=== PATIENT | female | born 1935 | race Caucasian/White ===

== ENCOUNTER 2016-06-08 13:14 | Inpatient (IN) | payer MEDICARE, BC ==
[~2016-06-08] VITALS: Ht 172.7 cm; Wt 68.1 kg
[2016-06-08] VITALS (8 sets, daily range): BP systolic 119–140; BP diastolic 59–76
[~2016-06-08 13:14] MED LIST: AMLODIPINE10 MG PO; ARICEPT5 MG PO; ASPIRIN EC81 MG PO; BENICAR HCT1 TA2 PO; BENICAR40 MG PO; BENZONATATE200 MG PO; CALCIUM500 M3 PO; CITALOPRAM10 MG PO; COREG25 MG PO; ECOTRIN325 MG; FLONASE NASAL50 MCG; GABAPENTIN100 MG PO; GABAPENTIN300 MG PO; HYDROCHLOROT12.5 M1 PO; IMDUR60 MG PO; LASIX20 MG PO; LISINOPRIL20 M1 OR; MAGNESIUM 250 M1 TAB PO; METOPROL TAR25 M1 PO; NAMENDA XR28 MG PO; NORTRIPTYLIN25 MG PO; OMEPRAZOLE20 M1 PO; PRAVASTATIN40 MG PO; PREDNISONE10 MG PO; RETINAVITES PO; VITAMIN B-121000 MCG PO; VITAMIN D3400 UNI1 PO; XANAX0.25 MG PO
[2016-06-08 13:43] LABS: HEMATOCRIT 42.8 % (37.0-47.0); HEMOGLOBIN 14.2 g/dl (12.0-16.0); IMMATURE GRANULOCYTES 0.9 % (0.0-1.0); MEAN CORPUSCULAR HGB 30.5 pG CALC (26.0-32.0); MEAN CORPUSCULAR HGB CONC 33.2 g/L CALC (32.0-36.0); NEUT# 3.6 thou/uL (2.00-7.15); RED BLOOD COUNT 4.65 mill/uL (4.20-5.60); RED CELL DISTRI WIDTH 13.2 % (11.5-15.5)
[2016-06-08 13:54] LABS: PROTHROMBIN TIME 10.9 SECONDS (9.0-12.5)
[2016-06-08 13:57] LABS: ALBUMIN 4.7 g/dL (3.2-5.0); ALKALINE PHOSPHATASE 95 u/l (38-126); ANION GAP 18 (6-22 (CALC)); BILIRUBIN, TOTAL 0.6 mg/dL (0.0-1.4); BUN 26 mg/dL (8-23); BUN/CREATININE RATIO 23 (12-20 (CALC)); CALCIUM 9.4 mg/dL (8.4-10.2); CARBON DIOXIDE 25 mmol/l (22-30); CHLORIDE 100 mmol/l (95-108); CREATININE 1.1 mg/dL (0.5-1.0); GFR 48 ML/MIN (>=60 (CALC)); GFR FOR AFR.AMER. 58 ML/MIN (>=60 (CALC)); GLUCOSE 84 mg/dL (82-115); POTASSIUM 3.8 mmol/l (3.5-5.1); SGOT/AST 31 u/l (9-36); SGPT/ALT 22 u/l (11-66); SODIUM 140 mmol/l (137-146); TOTAL PROTEIN 8.1 g/dL (6.3-8.2)
[2016-06-08 14:09] LABS: MYOGLOBIN 73 ng/mL (0 - 62)
[2016-06-08 15:24] LABS: URINE BILIRUBIN - DIPSTICK NEGATIVE (NEGATIVE); URINE BLOOD DIPSTICK NEGATIVE (NEGATIVE); URINE CLARITY SLIGHT CLOUDY; URINE COLOR YELLOW; URINE GLUCOSE - DIPSTICK NEGATIVE (NEGATIVE); URINE KETONE NEGATIVE (NEGATIVE); URINE NITRITE - DIPSTICK NEGATIVE (Negative); URINE PH 6.5 (4.5-8.0); URINE PROTEIN - DIPSTICK NEGATIVE (NEG-TRACE); URINE UROBILINOGEN - DIPSTICK 0.2 E.U./dL (0.2)
[2016-06-08 15:27] LABS: URINE LEUK ESTERASE SMALL (NEGATIVE)
[2016-06-08 15:31] LABS: URINE BACTERIA MANY hpf; URINE RBC 0-2 RBC/hpf (0-5); URINE SQUAMOUS EPITHELIAL CELL FEW EPI/hpf (0-FEW)
[2016-06-09] VITALS (17 sets, daily range): BP systolic 124–182; BP diastolic 53–95
[2016-06-09 05:31] LABS: HEMOGLOBIN 13.4 g/dl (12.0-16.0); IMMATURE GRANULOCYTES 0.4 % (0.0-1.0); MEAN CELL VOLUME 90.7 fL CALC (80.0-100.0); MEAN CORPUSCULAR HGB 30.4 pG CALC (26.0-32.0); MEAN CORPUSCULAR HGB CONC 33.5 g/L CALC (32.0-36.0); NEUT# 2.88 thou/uL (2.00-7.15); RED BLOOD COUNT 4.41 mill/uL (4.20-5.60); RED CELL DISTRI WIDTH 13.1 % (11.5-15.5)
[2016-06-09 05:34] LABS: ANION GAP 15 (6-22 (CALC)); BUN 26 mg/dL (8-23); BUN/CREATININE RATIO 29 (12-20 (CALC)); CALCIUM 9.4 mg/dL (8.4-10.2); CALCULATED LDLCHOLESTEROL 73 mg/dL (62-129 (CALC)); CARBON DIOXIDE 27 mmol/l (22-30); CHLORIDE 101 mmol/l (95-108); CREATININE 0.9 mg/dL (0.5-1.0); GFR > 60 ML/MIN (>=60 (CALC)); GFR FOR AFR.AMER. > 60 ML/MIN (>=60 (CALC)); GLUCOSE 91 mg/dL (82-115); HDL CHOLESTEROL 81 mg/dL (>=40); SODIUM 140 mmol/l (137-146); TOTAL CHOLESTEROL 185 mg/dl (0-199); TOTAL TRIGLYCERIDES 157 mg/dl (30-149); VLDL CHOLESTROL 31 mg/dl (0-48 (CALC))
== END 2016-06-09 22:15 | disposition short-term general hospital (02) | DRG 309 ==
LOC: ED 13:14 → ED-I 14:52 → ED 15:10 → ICU 15:11
PROVIDERS: Emergency Medicine; ADMIT Internal Medicine; ATTEND Internal Medicine
DX: I48.91 Unspecified atrial fibrillation (principal); I62.9 Nontraumatic intracranial hemorrhage, unspecified; G62.9 Polyneuropathy, unspecified; I42.9 Cardiomyopathy, unspecified; H54.61 Unqualified visual loss, right eye, normal vision left eye; I10 Essential (primary) hypertension; I25.10 Atherosclerotic heart disease of native coronary artery without angina pectoris; J44.9 Chronic obstructive pulmonary disease, unspecified; G47.33 Obstructive sleep apnea (adult) (pediatric); Z95.1 Presence of aortocoronary bypass graft
CPT/HCPCS: J1650